=== PATIENT | male | born 1985 | race Caucasian/White ===

== ENCOUNTER 2016-08-07 01:18 | Emergency (ER) | payer SELFPAY ==
[2016-08-07 02:01] VITALS: BP 133/82; PULSE 91; TEMP 98.4; BMI 32.8
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
== END 2016-08-07 04:26 | disposition home or self-care (01) ==
LOC: JER 01:18
DX: M25.531 Pain in right wrist (principal); M25.532 Pain in left wrist; V44.5XXA Car driver injured in collision with heavy transport vehicle or bus in traffic accident, initial encounter; Y92.414 Local residential or business street as the place of occurrence of the external cause; Y93.89 Activity, other specified
CPT/HCPCS: 73110-TC-LT; 73110-TC-RT; 73130-TC-LT; 73130-TC-RT; 73560-TC-LT; 73560-TC-RT; 73610-TC-LT; 73610-TC-RT; 73630-TC-LT; 73630-TC-RT; 99281-25

== ENCOUNTER 2022-03-03 16:42 | Emergency (ER) | payer OTHER ==
[2022-03-03 17:25] VITALS: BP 133/94; PULSE 94; RESP 17; TEMP 99.9; BMI 38.0
== END 2022-03-03 18:53 | disposition home or self-care (01) ==
LOC: JER 16:42
DX: F41.9 Anxiety disorder, unspecified (principal)
CPT/HCPCS: 71046-TC-FY; 99283-25